=== PATIENT | female | born 1995 | race African-American/Black ===

== ENCOUNTER 2019-09-10 10:06 | Emergency (ER) | payer OTHER ==
[~2019-09-10] VITALS: Ht 165.1 cm; Wt 113.4 kg
[2019-09-10] MEDS ORDERED: TYLENOL WITH CO1 TA1 PO (11:23)
[2019-09-10] MEDS ORDERED: MOBIC7.5 MG PO (11:23)
[2019-09-10] MEDS ORDERED: LIDODERM1 EACH TOP (11:23)
[2019-09-10] MEDS ORDERED: MEDROLDOSEPACK PO (11:23)
[2019-09-10] MEDS ORDERED: FLEXERIL PO (12:12)
[2019-09-10 12:42] VITALS: BP 135/79
== END 2019-09-10 12:43 | disposition home or self-care (01) ==
LOC: M.ERS 10:06
DX: S13.4XXA Sprain of ligaments of cervical spine, initial encounter (principal); V43.52XA Car driver injured in collision with other type car in traffic accident, initial encounter; Y93.89 Activity, other specified; Y92.488 Other paved roadways as the place of occurrence of the external cause; Y99.8 Other external cause status